=== PATIENT | male | born 1990 | race Caucasian/White ===

== ENCOUNTER 2024-12-31 22:21 | Emergency (ER) | payer OTHER, SELFPAY ==
[2024-12-31 22:58] VITALS: BP 142/75; PULSE 68; RESP 18; TEMP 36.6; O2SAT 100
[2025-01-01] MEDS: FLUORESCEIN SOD 1 MG/STRIP (01:57)
[2025-01-01] MEDS: TETRACAINE HCL 0.5% OPHTH SOLN 4 ML BTL 1 DROP (01:57)
--- OUTSIDE RECORDS SUMMARY | 2025-01-01 02:34 | XMS_ITS | Patient Health Record ---
Author Organization [employer] [facility] Address [address] [place] [address] Care Team Providers Care Clip Loading Machine Feeder Name Role Phone DR. SHAN MASTERS Primary Care Provider Term DR. NED MATA Unavailable [phone] JACOBO BOSS Unavailable Unavailable Allergies Allergen (clinical drug ingredient) Drug/Non Drug Allergy documented on EMR Reaction Allergy Type Onset Date Status poison del (uncoded) Unknown Allergy Active Reason For Referral Reason [place]- MHC - 01/22/2024 @ 5AM Bob Aguilera ([facility]) Diagnosis 1 Depression with anxi ety (F41.8) Referral Organization [facility] Winsome lemonslinette Referring Provider First Name NED Referring Provider Last Name Term GRAHAM ON Referring Provider Speciality Family Med icirenny Referred Provider Specialty Mental healt h counseling General Notes CL Andrea Banuelos 02/2023 08:55:43 AM >1.Type of service: Counseling WITH , 2. Is member in [facility] (Y/N):, If Y, was [facility] offered , 2.Order (Y/N), Ordering Provider:, 3. Preferred Provider (Y/N):, 4. Facility/Provider Name: [facility] / [facility], 5. NPI Number: , 6. Provider Address/Phone/Fax: [address], [place] [id number], , 7. Appointment Date/Time: 01/22/2024 @ 5AM, 8. If preferred provider charges over the usual rates, member is willing to pay the amount over fair rate: (Y/N), If N, member is willing to go elsewhere., 9.Notes: $50 copay Referral Priority Routine Reason [place] - XR CHEST [address] [facility] [address] [facility] [address] [place] [address] Walk-In X-Ray Hours: Saturday through Saturday 7am - 5pm Tax ID: [id number] Accept PHCS: Y Diagnosis 1 Persistent cough for 3 weeks or longer (R05.3) Referral Organization RETIRED [facility] 1 Referring Provider First Name JACOBO Referring Provider Last Name GERA Referring Provider Speciality Nurse Prac titioner Referred Provider Specialty Radiology General Notes Trang Marquez 01/14/2024 03:01:50 PM >Type of service: Radiology - Chest XRay PA & Lateral , Order (Y/N), Ordering Provider: N/A, Preferred Provider (Y/N): N/A, Facility/Provider Name: (If no, input N/A) N/A, NPI Number: (If no, input N/A) N/A, Provider Address/Phone/Fax: (if none, input N/A) N/A, Appointment Date/Time: (If none, input TBD and availability day/time) N/A, If preferred provider charges over the usual rates, member is willing to pay the amount over fair rate (Y/N) N/A, Notes: Chest XRay PA & Lateral Clinical Notes Marcin Holden ma 01/15/2024 12:05:31 PM >Facility Name: [facility], Address: [address] [place] [address], - 3 - transferred to prearrival team, , , Tax ID: [id number], Spoke with: Abdiel Dumont, [place] [id number]?: Y, Confirmed/Provided Insurance Information?: Y, Copay: $0, Appointment: Walk-In X-Ray Hours: Saturday through Saturday 7am - 5pm, Notes: scheduling rep provided walk in hours - stated she would transfer me to prearrival team to confirm they accept PHCS - spoke with Julia and she confirmed they accept PHCS, CL Luna Mendoza 01/15/2024 12:16:02 PM >emailed RRF with copy of order and x-ray walk in hours - faxed to facility with progress notes - logged in spreadsheet, called mm to close coordination - left advising mm to walk in and present [facility] ID card, no copay and RRF and order in case he plans to go today, they may not have it uploaded into the chart in time - closing out Referral Priority Stat Reason [place]-PCP DOS 05/21/24 [facility]Jose Ramon Diana MD Diagnosis 1 Annual physical exam (Z00.00) Referral Organization [facility] [employer] [facility] Referring Provider First Name NED Referring Provider Last Name Term GRAHAM ON Referring Provider Speciality Family Med icine Referred Provider Specialty Family Medic ine General Notes CL Tammy Chamorro 0 05/19/2024 08:51:54 AM >1) Do you already have an appointment scheduled? 05/21/24 at 9am , 2) If not scheduled what is your availability? N, 3) What is the reason for visit? Annual physical , 4) Do you have a preferred provider? N, 5) What type of provider is this? PCP , 6) Do you already have a referral or order for this? N/A , 7) Notes: $0 copay Emailed RRF , , * Facility/provider name: [facility]-Jose Ramon Diana MD, * Provider Address/Phone: [address] [place] [address] [address], [place] [address] , * Is the member in [facility] (Y/N): If Y was [facility] offered? , [id number], Effective : 02/12/24 Referral Priority Routine Referral Appointment Date 05/21/2024 Medications Medication SIG (Take, Route, Frequency, Duration) Notes Start Date End Date Status Albuterol Sulfate HFA 108 (90 Base) MCG/ACT Aerosol Solution 2 puffs Inhalation every 4-6 hours as needed for shortness of breath or wheezing 1 pack = 1 inhaler 01/19/2022 Not-Taking Ibuprofen 800 MG Tablet 1 tablet with food or milk as needed Orally every 8 hrs 03/16/2024 Not-Taking Albuterol Sulfate HFA Not-Taking Escitalopram Oxalate 5 MG Tablet 1 tablet, increase to 2 daily in one week Orally Once a day; Duration: 30 day(s) 07/17/2021 Not-Taking Vitamin D3 Not-Takin g Albuterol Sulfate HFA 108 (90 Base) MCG/ACT Aerosol Solution 1-2 puffs every 4 hrs; Duration: 30 days 12/06/2022 Active Social History Tobacco Use: Social History Observation Description Date Details (start date - stop date) Never Smoker NA - NA Social History Tobacco Use: Social Info Question Answer Notes Tobacco Use/Smoking Are you a: never smoker Section Notes: Never smoked Alcohol now down to 2 drinks a week due to elevated liver enzyme. He has had times of drining too much in the past. Never smoked Alcohol now down to 2 drinks a week due to elevated liver enzyme. He has had times of drining too much in the past. Never smoked Alcohol now down to 2 drinks a week due to elevated liver enzyme. He has had times of drining too much in the past. Never smoked Alcohol now down to 2 drinks a week due to elevated liver enzyme. He has had times of drining too much in the past. Never smoked Alcohol now down to 2 drinks a week due to elevated liver enzyme. He has had times of drining too much in the past. Never smoked Alcohol now down to 2 drinks a week due to elevated liver enzyme. He has had times of drining too much in the past. Never smoked Alcohol now down to 2 drinks a week due to elevated liver enzyme. He has had times of drining too much in the past. Never smoked Alcohol now down to 2 drinks a week due to elevated liver enzyme. He has had times of drining too much in the past. Never smoked Alcohol now down to 2 drinks a week due to elevated liver enzyme. He has had times of drining too much in the past. Never smoked Alcohol now down to 2 drinks a week due to elevated liver enzyme. He has had times of drining too much in the past. Problems Problem Type SNOMED Code ICD Code Onset Dates Problem Status W/U Status Risk Notes Problem Obese class I (866734563450831) BMI 33.0-33.9,adult (Z68.33) 07/15/19 25 Active confirmed Problem Mixed hyperlipidemia (551789925) Mixed hyperlipidemia (E78.2) Active confirmed Problem Paresthesia (finding) (71678038) Paresthesia of skin (R20.2) Active confirmed Problem Anxiety (88647693) Anxiety (F41.9) Active confirmed Problem Mixed anxiety and depressive disorder (162103888) Depression with anxiety (F41.8) Active confirmed Problem Thoracic back pain (953698199) Upper back pain (M54.9) Active confirmed Problem Skin sensation disturbance (34478407) Arm paresthesia, left (R20.2) Active confirmed Problem Skin sensation disturbance (91805117) Numbness of left foot (R20.8) Active confirmed Vital Signs Weight-kg 113.4 kg 07/13/2024 Height 72 in 07/13/2024 Weight 250 lbs 07/13/2024 BMI 33.9 kg/m2 07/13/2024 Encounters Encounter Location Date Provider Diagnosis [facility] 1 ID 07/13/2024 JACOBO BOSS Bacter ial conjunctivitis H10.9 ; Blurry vision H53.8 and BMI 33.0-33.9,adult Z68.33 [facility] 1 ID 03/16/2024 JACOBO BOSS Left f orearm pain M79.632 [facility] 1 ID 01/14/2024 JACOBO BOSS Persis tent cough for 3 weeks or longer R05.3 [facility] 1 ID 01/14/2024 JACOBO BOSS RET[facility] 1 ID 01/14/2024 [facility] RETIRED [facility]AC 1 ID 01/12/2024 [facility] 1 [place] 07/13/2024 JACOBO BOSS RETIRED [facility] 1 ID 07/13/2024 [facility] [address] ([facility]) [place] [address] 06/03/2024 [facility] RETIRED FAC 1 ID 05/19/2024 [facility] RETIRED [facility]AC 1 ID 03/16/2024 JACOBO BOSS RETIRED [facility] 1 ID 03/16/2024 [facility] Assessments Encounter Date Diagnosis (ICD Code) Assessment Notes Treatment Notes Treatment Clinical Notes Section Notes 01/14/2024 Persistent cough for 3 weeks or longer (ICD-10 - R05.3) Persistent cough but no shortness of breath with occasional wheeze. Advised to use Mucinex. He has an albuterol inhaler. Will order chest x-ray 07/13/2024 Blurry vision (ICD-10 - H53.8) Advised to call if not improving. 07/13/2024 Bacterial conjunctivitis (ICD-10 - H10.9) Diagnosis suggests bacterial conjunctivitis due to yellowish discharge and irritation. Environmental factors may have exacerbated symptoms. Advised to not rub the eyes and to wash linens in hot water and if wearing contacts to make sure to avoid wearing them until symptoms clear up. 03/16/2024 Left forearm pain (ICD-10 - M79.632) Likely a pulled muscle. Advised to: Avoid activities that cause pain or discomfortDon't put weight on the muscle for a couple of daysApply ice or a cold pack for 10-20 minutes every 1-2 hours while you're awake for the first few daysPut a thin cloth between the ice and your skintake ibuprofen with food as needed for the paincall if new or worsening symptoms 07/13/2024 BMI 33.0-33.9,adult (ICD-10 - Z68.33) 07/13/2024 Other Patient consent ed to a telemedicine encounter via audio communication. Patient physical location for DOS is at listed residence unless otherwise stated. Billing based on cummulative time. All lab work, imaging, medications and records pertinent to the below diagnoses were reviewed with patient. Treatment plan and goals were reviewed with patient and/or family, suggestions for self care tools at home were discussed with patient and/or family where appropriate. Questions were answered to patient satisfaction. Patient agrees to the plan and follow up recommendations discussed. Patient aware to follow up sooner if any new or worsening symptoms. ER instructions explained where appropriate. Provider follow up: 1% Coordination : 10% Coordination : Send Patient Education: Note for work/school: Additional needs: 1 RX - find [facility] 01/14/2024 Other Patient consent ed to a telemedicine encounter via audio communication. Patient physical location for DOS is at listed residence unless otherwise stated. Billing based on cummulative time. All lab work, imaging, medications and records pertinent to the below diagnoses were reviewed with patient. Treatment plan and goals were reviewed with patient and/or family, suggestions for self care tools at home were discussed with patient and/or family where appropriate. Questions were answered to patient satisfaction. Patient agrees to the plan and follow up recommendations discussed. Patient aware to follow up sooner if any new or worsening symptoms. ER instructions explained where appropriate. Provider follow up: 1% Coordination : 10% Coordination : Send Patient Education: Note for work/school: Additional needs: chest x-ray ordered 03/16/2024 Other Patient consent ed to a telemedicine encounter via audio communication. Patient physical location for DOS is at listed residence unless otherwise stated. Billing based on cummulative time. All lab work, imaging, medications and records pertinent to the below diagnoses were reviewed with patient. Treatment plan and goals were reviewed with patient and/or family, suggestions for self care tools at home were discussed with patient and/or family where appropriate. Questions were answered to patient satisfaction. Patient agrees to the plan and follow up recommendations discussed. Patient aware to follow up sooner if any new or worsening symptoms. ER instructions explained where appropriate. Provider follow up: 1% Coordination : 10% Coordination : Send Patient Education: Note for work/school: Additional needs: 1 RX - find [facility] Plan Of Treatment Future Test Test Name Order Date Comp. Metabolic Panel [id number] 2021 Insurance Providers Payer Name Payer Address Payer Phone Subscriber Number Group Number Insured Name Patient Relationship to Insured Coverage Start Date Coverage End Date [employer] [address] [place] [id number] JONI CONNOLLY Self - patient is the insured 9 5 Medical (General) History Medical History History ICD Code Anxiety Asthma in childhood Surgical History Surgery Date(Month/Year) Vasectomy 08/2021 Hospitalization History Reason Date(Month/Year) Denies
--- NOTE | 2025-01-01 02:40 | ED_ITS ---
HPI - General Adult General Chief complaint: Eye Problems Stated complaint: R contact dried onto eye Time Seen by Provider: 01/01/25 01:40 History of Present Illness HPI narrative: 34-year-old male presenting with right eye irritation. Patient reports that he was trying to remove his contact which led to significant irritation. Denies sensation of foreign body, vision changes, or headache. Related Data Allergies Allergy/AdvReac Type Severity Reaction Status Date / Time No Known Allergies Allergy Verified 01/01/25 01:57 Review of Systems Review of Systems: All systems reviewed & are unremarkable except as noted in HPI and below Exam Narrative: GENERAL: Well-appearing, well-nourished, and in no acute distress. HEAD: Normocephalic, atraumatic. EYES: PERRLA and EOMI. Conjunctival injection of the right eye, greatest on the medial aspect. ENT: Nares clear, no rhinorrhea or epistaxis. Mucous membranes moist. Oropharynx without tonsillar hypertrophy exudate or other lesions. Bilateral TMs pearly cardoza non-bulging NECK: Supple. No adenopathy or masses. No carotid bruits or JVD CHEST: Clear to auscultation. No respiratory distress. No wheezes rales or rhonchi HEART: Regular rate and rhythm. No murmur heard. Normal peripheral pulses. ABDOMEN: Soft, nontender, nondistended, normal active bowel sounds. EXTREMITIES: Normal range of motion. No edema. SKIN: Warm, dry, no rash. NEURO: No focal deficits. Alert and oriented x3. PSYCH: Normal mood and affect Course Vital Signs Vital signs: Vital Signs Temperature 97.8 F 12/31/24 22:58 Pulse Rate 68 12/31/24 22:58 Respiratory Rate 18 12/31/24 22:58 Blood Pressure 142/75 H 12/31/24 22:58 Pulse Oximetry 100 12/31/24 22:58 Oxygen Delivery Room Air 12/31/24 22:58 Temperature 97.8 F 12/31/24 22:58 Pulse Rate 68 12/31/24 22:58 Respiratory Rate 18 12/31/24 22:58 Blood Pressure 142/75 H 12/31/24 22:58 Pulse Oximetry 100 12/31/24 22:58 Oxygen Delivery Room Air 12/31/24 22:58 Medical Decision Making [facility] Narrative Medical decision making narrative: 34-year-old male presenting with right eye irritation and discomfort. Patient reports that he was trying to remove his contact which led to significant irritation. Denies sensation of foreign body, vision changes, or headache. No abrasion noted on fluorescein eye exam. Furthermore no foreign body visualized and conjunctiva mildly injected. Vision intact, pupils equal reactive, and extraocular movements intact. Bilateral intra-ocular pressures measured at 14 mmHg. Visual acuity unchanged from baseline. Eye wash drops provided. Patient provided prescription for eyedrops to use if symptoms do not improve over the next few days. Recommended follow-up with his creative consultant. Given reasons to return. Medical Records Medical records reviewed: Yes I reviewed the external patient's medical records. Vital Signs Vital Signs: Vital Signs Temperature 97.8 F 12/31/24 22:58 Pulse Rate 68 12/31/24 22:58 Respiratory Rate 18 12/31/24 22:58 Blood Pressure 142/75 H 12/31/24 22:58 Pulse Oximetry 100 12/31/24 22:58 Oxygen Delivery Room Air 12/31/24 22:58 Temperature 97.8 F 12/31/24 22:58 Pulse Rate 68 12/31/24 22:58 Respiratory Rate 18 12/31/24 22:58 Blood Pressure 142/75 H 12/31/24 22:58 Pulse Oximetry 100 12/31/24 22:58 Oxygen Delivery Room Air 12/31/24 22:58 Discharge Plan Discharge Clinical Impression: Eye irritation Patient Disposition: Home Condition: Stable Instructions: Antibiotic Form, Eye Pain (ED) Additional Instructions: Avoid rubbing or scratching the eye. You may use lubricating or artificial tears as needed for comfort. Do not wear your contacts until symptoms have resolved. If your discomfort persists, apply prescribed drops according to the instructions provided. Return immediately if you have sudden vision changes (blur, loss of vision, flashes, floaters), increasing redness/swelling, severe pain or persistent discomfort, or any other concerning symptoms. Follow-up with your creative consultant. Follow-up with your PCP for any other general concerns. Patient Language: [place] Prescriptions: New ofloxacin [Ocuflox] 0.3 % drops See Rx Instructions .ROUTE .COMPLEX Qty: 5 0RF Rx Instructions: put 1-2 drps into affected eye(s) every 2-4 h x 2 days, then 1-2 drps 4 times/day days 3-7 Follow-up/Referrals: Jose Ramon Diana MD [Primary Care Provider, Family Practice]
[2025-01-01 02:43] VITALS: BP 121/78; PULSE 64; RESP 18; O2SAT 99
== END 2025-01-01 02:43 | disposition home or self-care (01) ==
PROVIDERS: PCP Family Medicine
DX: H57.89 Other specified disorders of eye and adnexa (principal)
CPT/HCPCS: 99283